=== PATIENT | male | born 1950 | race Caucasian/White ===

== ENCOUNTER 2016-08-08 10:45 | Day surgery (SDC) | payer OTHER | END 2016-08-08 23:59 | disposition home or self-care (01) | LOC: DMU 10:45 | PROVIDERS: Internal Medicine Gastroenterology | PROC: 4A1B78Z Monitoring of Gastrointestinal Motility, Via Natural or Artificial Opening (ICD-10-PCS; principal; 2016-08-08 10:30) | DX: K21.9 Gastro-esophageal reflux disease without esophagitis (principal) | CPT/HCPCS: A9270-GY; C1894 ==